=== PATIENT | male | born 1965 | race Caucasian/White ===

== ENCOUNTER 2020-10-02 23:38 | Inpatient (IN) | payer SELFPAY ==
[~2020-10-02] VITALS: Ht 185.4 cm; Wt 70.8 kg
[2020-10-03 00:46] LABS: Alanine Aminotransfer (ALT/SGP 28 U/L (12-78); Albumin, Blood 3.7 g/dL (3.4-5.0); Albumin/Globulin Ratio 1.2 (0.8-1.8); Alk Phos 62 U/L (50-136); Anion Gap 4 mmol/L (6-16); Aspartate Aminotrans (AST/SGOT 40 U/L (12-37); Bilirubin, Total 0.4 mg/dL (0.1-1.0); Blood Urea Nitrogen 20 mg/dL (8-24); Bun/Creatinine Ratio 21.7 (12.0-20.0); CO2, Blood 29 mmol/L (21-32); Calcium, Blood 9.1 mg/dL (8.5-10.1); Chloride, Blood 109 mmol/L (98-108); Creatinine, Blood 0.92 mg/dL (0.60-1.20); Globulin, Blood 3.2 g/dL (2.2-4.0); Glomerular Filtration Rate >60 (60-); Glucose, Blood 88 mg/dL (70-99); Potassium, Blood 4.5 mmol/L (3.5-5.5); Sodium, Blood 142 mmol/L (136-145); Total Protein, Blood 6.9 g/dL (6.4-8.2)
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
[2020-10-03] MEDS ORDERED: TUMS500 MG PO (04:40)
[2020-10-03] MEDS ORDERED: POTCHL20ER PO (04:40)
[2020-10-03] MEDS ORDERED: Vitamin B-121000 MCG (04:40)
[2020-10-03] MEDS ORDERED: ATEN25 PO (04:41)
[2020-10-03] MEDS ORDERED: ALBU2.5V5 INH (04:42)
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
[2020-10-03 07:13] LABS: BASOPHILS ABSOLUTE AUTO 0.03 K/mm3 (0.00-0.23); BASOPHILS PERCENT AUTO 1 % (0-2); EOSINOPHILS ABSOLUTE AUTO 0.07 K/mm3 (0.00-0.68); EOSINOPHILS PERCENT AUTO 2 % (0-6); Hematocrit 29.6 % (37.0-53.0); Hemoglobin 9.1 g/dL (13.5-17.5); IMMATURE GRAN ABSOLUTE AUTO 0.01 K/mm3 (0.00-0.10); IMMATURE GRAN PERCENT AUTO 0 % (0-1); LYMPHOCYTES PERCENT AUTO 24 % (21-46); MONOCYTES ABSOLUTE AUTO 0.54 K/mm3 (0.16-1.47); MONOCYTES PERCENT AUTO 16 % (4-13); Mean Corpuscular HGB 26.7 pg (26.0-34.0); Mean Corpuscular HGB Conc 30.7 g/dL (31.5-36.5); Mean Corpuscular Volume 87 fL (80-100); Mean Platelet Volume 9.9 fL (9.1-12.4); NEUTROPHILS ABSOLUTE AUTO 1.84 K/mm3 (1.96-9.15); NEUTROPHILS PERCENT AUTO 56 % (41-73); Platelet Count 169 K/mm3 (150-400); RDW Standard Deviation 59.8 fL (35.1-46.3); Red Blood Cell Count 3.41 M/mm3 (4.30-5.90); White Blood Cell Count 3.29 K/mm3 (4.00-11.30)
--- NOTE | 2020-10-03 07:18 | NUR ---
SHIFT SUMMARY PT RESTING COMFORTABLY AT THIS TIME, NO S/S ACUTE DISTRESS NOTED. ETTA RODRIGES ASSUMED CARE FOR REMAINDER OF SHIFT. REPORT GIVEN TO ETTA ALFARO.
--- NOTE | 2020-10-03 09:10 | NUR ---
PT HAS BEEN INCREASINGLY AGITATED THIS MORNING, ASKED FOR NUMEROUS PHONE NUMBERS OF COMMUNITY PLACES, REFUSED TO CONTINUE IVF, REFUSED NGT TO SUCTION, WANDERING CONNELL, REFUSING TO RETURN TO ROOM, INTERUPTING PHONE CALLS AND DISCUSSIONS AND IS ANGRY WHEN ASKED TO WAIT UNTIL FINISHED. PT RETURNED TO ROOM, DRESSED IN STREET CLOTHES AND SAID HE IS LEAVING, REMOVED NGT AND IV DISCONTINUED. AMA RISK/BENEFIT SHEET REVIEWED WITH PT BY JULIETTE MALIN RN.
== END 2020-10-03 09:10 | disposition left against medical advice (07) | DRG 390 ==
LOC: ER 23:38 → MEDS 10-03 04:08
PROVIDERS: Emergency Medicine; ADMIT Internal Medicine
PROC: 0D9670Z Drainage of Stomach with Drainage Device, Via Natural or Artificial Opening (ICD-10-PCS; principal; 2020-10-03)
DX: K56.609 Unspecified intestinal obstruction, unspecified as to partial versus complete obstruction (principal); K91.1 Postgastric surgery syndromes; Z77.090 Contact with and (suspected) exposure to asbestos; Z66 Do not resuscitate; Z87.891 Personal history of nicotine dependence
CPT/HCPCS: 36415; 71045; 74176; 80053; 83690; 85025; J1170; J2405; J7030; J7120